=== PATIENT | male | born 1955 | race Caucasian/White ===

== ENCOUNTER 2024-02-12 08:28 | Day surgery (SDC) | payer OTHER ==
[~2024-02-12] VITALS: Ht 185.4 cm; Wt 102.0 kg
[2024-02-12] MEDS: NS 1,000 ML IV ONE (08:51)
[2024-02-12] MEDS ORDERED: propofoL 200 MG/20 ML VIAL As Ordered ONE (10:05)
[2024-02-12 10:28] VITALS: TEMP 98.2
[2024-02-12 10:50] VITALS: BP 132/85; O2SAT 96
== END 2024-02-12 10:57 | disposition home or self-care (01) ==
LOC: M OPP 08:28
PROVIDERS: ATTEND Surgery
DX: Z86.010 Personal history of colon polyps (principal); D12.6 Benign neoplasm of colon, unspecified; K57.30 Diverticulosis of large intestine without perforation or abscess without bleeding; K64.8 Other hemorrhoids